=== PATIENT | female | born 1950 | race Caucasian/White ===

== ENCOUNTER 2017-07-31 15:32 | Emergency (ER) | payer MEDICARE ==
[2014-07-04 17:05] VITALS: BMI 24.3
[~2017-07-31 15:32] MED LIST: CENTRUM COMPLE1 EACH PO; IPRAT-ALBUT 0.5-3 ML INH; LEVAQUIN750 MG PO; NICODERM C1 PATCH .1 TRANSDERM; POTASSIUM99 M1 PO; STERAPRED DS 1210 MG PO; ZYRTEC10 MG PO
[2017-07-31 16:44] LABS: UDS - AMPHET NEGATIVE QUAL (NEGATIVE); UDS - BARB NEGATIVE QUAL (NEGATIVE); UDS - BENZO NEGATIVE QUAL (NEGATIVE); UDS - COCAINE NEGATIVE QUAL (NEGATIVE); UDS - OPIATE NEGATIVE QUAL (NEGATIVE); UDS - PCP NEGATIVE QUAL (NEGATIVE); UDS - THC NEGATIVE QUAL (NEGATIVE)
[2017-07-31 17:33] LABS: INR 1.46 (0.85-1.17); PROTIME 17.2 SECONDS (11.6-15.0)
== END 2017-07-31 18:08 | disposition home or self-care (01) ==
LOC: D.ER 15:32
PROVIDERS: Family Medicine
DX: S00.83XA Contusion of other part of head, initial encounter (principal); W17.89XA Other fall from one level to another, initial encounter; Y93.89 Activity, other specified; Y92.89 Other specified places as the place of occurrence of the external cause; F10.129 Alcohol abuse with intoxication, unspecified; J44.9 Chronic obstructive pulmonary disease, unspecified